=== PATIENT | female | born 1940 | race Caucasian/White ===

== ENCOUNTER 2017-02-26 09:57 | Emergency (ER) | payer MEDICARE, OTHER ==
[~2017-02-26] VITALS: Ht 163.8 cm; Wt 59.1 kg
[~2017-02-26 09:57] MED LIST: ASPI-628 PO; CHOL200012 PO; ESTR10TA VG; LORA10CA PO; RES15 PO
[2017-02-26 10:02] VITALS: BP 195/102; PULSE 86; RESP 14; O2SAT 99
--- NOTE | 2017-02-26 10:14 | ED.REPORT ---
HPI-General Illness Date of Service Feb 26, 2017 ED Provider: Onel Sánchez DO The patient is a 76 year old female with history of mitral valve prolapse, who presents to the emergency department after she had a sudden syncopal episode that occurred prior to arrival. The patient was out walking with a friend when she suddenly lost consciousness. She states she had no warning prior to the event. She remembers taking a step forward and was then flat on the road. Her walking partner told her that she said "on no" before she lost consciousness. She fell and hit her head on the road. She did not experience chest pain or shortness of breath prior to the event. At this time she complains of a headache and mild nausea. She denies severe neck pain, extremity pain, abdominal pain, back pain or vomiting. She ate a normal breakfast prior to the walk. She denies recent illnesses. Nursing Notes Stated Complaint: HEAD INJURY Chief Complaint: Head, Face, Neck Trauma Nursing Notes Reviewed: Yes Allergies: Coded Allergies: Barbiturates (Verified Allergy, Unknown, PSYCH FEELING, 09/09/09) Sulfa (Sulfonamide Antibiotics) (Verified Allergy, Unknown, 02/26/17) codeine (Verified Allergy, Unknown, 09/09/09) Scheduled Aspirin (Aspir 81) 81 Mg Tablet.dr 81 MG PO DAILY Loratadine (Claritin) 10 Mg Capsule 10 MG PO DAILY Scheduled PRN Temazepam (Temazepam) 15 Mg Capsule 15 MG PO HS PRN PRN For Insomnia Miscellaneous Medications Cholecalciferol (Vitamin D3) (D3-2000) 2,000 Unit Capsule 2,000 UNIT PO Estradiol (Vagifem) 10 Mcg Tablet 10 MCG VG General Time Seen by MD: 10:14 Chief Complaint Other (syncopal episode) Hx Obtained From: Patient Arrived By: Walk-in Sudden in Onset?: Yes Onset Occurred: 16 - 30 minutes ago Symptom Duration: 1 - 15 minutes Location: : Head Quality: Painful Severity: Current: Mild Severity: Maximum: Mild Recent Healthcare: No recent doctor visit, No recent hospitalization Similar Sx Previous: No Past Medical History Past Medical History Hs of nose bleeds Arthritis Mitral valve prolapse Past Surgical History Denies Family History Nonconributory Smoking History Former Smoker Social History Drug Use: Denies drug use Other Social History: Good social support, Local resident Ambulatory Status Independent Review of Systems Full Review of Systems Constitutional: Denies: Chills, Fever Ears / Nose / Throat: Denies: Nasal congestion, Sore throat Respiratory: Denies: Non-productive cough, Prod cough, bloody, Prod cough, brown, Prod cough, clear, Prod cough, green, Prod cough, white, Prod cough, yellow, Shortness of breath Cardiovascular: Denies: Chest pain GI: Reports: Nausea, Denies: Abdominal pain, Diarrhea, Vomiting Musculoskeletal: Denies: Back pain, Extremity pain, Neck pain Neurologic: Reports: Change LOC, Headache, Syncope Complete sys rev & neg: except as marked. Physical Exam Vital Signs Vital Signs Date Time Temp Pulse Resp B/P Pulse Ox O2 Delivery O2 Flow Rate FiO2 02/26/17 12:53 36.4 80 12 148/74 99 Room Air 02/26/17 11:44 36.3 85 14 156/67 99 Room Air 02/26/17 10:02 36.4 86 14 195/102 99 Initial VS: Reviewed ENT: Mucous membranes moist, Conjunctiva normal, No scleral icterus Respiratory: Breath sounds normal, Clear to auscultation, No respiratory distress Cardiovascular: Regular rate & rhythm, Heart sounds normal, Intact distal pulses Abdomen / GI: Soft, Non-tender, No guarding, No rebound, No distention Lymphatic: No lymphadenopathy Extremities: Vascular intact, Neuro intact, No swelling, No tenderness Skin: Warm, Dry, No cyanosis Neurologic: Alert, Oriented, Nonfocal Psychiatric: Mood/affect normal, Behavior normal, Normal thought content General/Constitutional: Awake, Alert, Cooperative Head / Eyes: Normocephalic, PERRL, EOMI Left occipital hematoma with a 1 cm laceration. Neck: Atraumatic, Supple, Full range of motion, No swelling, No midline vertebral tend Interpretation & Diagnostics Lab Results Interpretation Result Diagram: 02/26/17 1052 02/26/17 1052 Test 02/26/17 10:52 White Blood Count 4.4th/mm3 (3.8-10.1) Red Blood Count 4.82mil/mm3 (3.90-5.20) Hemoglobin 15.3g/dL (12.0-15.6) Hematocrit 46.0% (35.0-46.0) Mean Corpuscular Volume 95.4fL (81-100) Mean Corpuscular Hemoglobin 31.7pg (27.0-35.0) Mean Corpuscular Hemoglobin Concent 33.3% (32.0-37.0) Red Cell Distribution Width 13.8% (12.3-15.4) Platelet Count 207bil/L (150-400) Neutrophils (%) (Auto) 69.6% (40-74) Lymphocytes (%) (Auto) 17.4% (14-46) Monocytes (%) (Auto) 10.7% (4-12) Eosinophils (%) (Auto) 1.6% (0-5) Basophils (%) (Auto) 0.5% (0-3) Hold Urine Received (Received) Sodium Level 138mEq/L (134-144) Potassium Level 4.2mEq/L (3.5-5.2) Chloride Level 99mEq/L (97-108) Carbon Dioxide Level 23mmol/L (18-29) Blood Urea Nitrogen 16mg/dL (8-27) Creatinine 0.61mg/dL (0.57-1.00) Estimat Glomerular Filtration Rate 137mL/min (>59) Glucose Level 117mg/dL (60-99) Calcium Level 10.1mg/dL (8.5-10.1) Magnesium Level 2.2mg/dL (1.6-2.6) Total Bilirubin 0.6mg/dL (0.0-1.2) Aspartate Amino Transf (AST/SGOT) 28U/L (0-50) Alanine Aminotransferase (ALT/SGPT) 22U/L (0-32) Alkaline Phosphatase 61U/L (25-165) Troponin T 0.010ug/L (0.0-0.011) Total Protein 8.2g/dL (6.4-8.4) Albumin 4.8g/dL (3.4-5.0) ECG Interpretation ECG Interpretation: Sinus rhythm with a rate of 83 RBBB Time: 10:25 Interpreted by: ED physician X-Ray Chest Interpretation Chest Xray Interpretation: No acute disease seen. View: Portable, 1 view Interpretation / Wet Read by: Interpret - Radiologist CT Head Interpretation IMPRESSION: 1. No acute intracranial findings. 2. Large left parietal subgaleal hematoma. No underlying calvarial abnormality. Dictated by: Neena Garcia M.D. on 02/26/2017 at 10:40 Study: Head CT no contrast Interpretation / Wet Read by: Interpret - Radiologist Procedures Laceration Management Time: 12:10 Procedure Performed by: ED physician Consent / Setup / Site Prep: Consent from patient, Time-out performed, Hand hygiene observed, Stand sterile technique Location of Wound: occipital region Wound Length: 1 cm Local Anesthesia: Other (LET) Digital Block: No Wound Preparation: Normal saline Debridement: None Irrigation: Copious Foreign Body Explore / Removal: Explored for foreign body Undermining / Margins: Flaps aligned Repair Skin: [place] # Sutures - Skin: 4 Closure Layers: 1 Post-Procedure / Complications: No complications, Condition improved, Tolerated procedure well, Patient stable Re-Eval/Medical Decision Med Decision/Clinical Course [place] syncope rule: negative Back to normal baseline. Discussed the possibility of hospitalization and admission for telemetry monitoring patient declines and wants to go home and follow-up with her primary care doctor and high school counselor. Return and follow-up precautions given. Source of Hx: Old records, Family Time of Eval: 11:00 Re-Evaluation/Progress Note: Discussed head CT results. Time of Eval: 11:39 Re-Evaluation/Progress Note: Rechecked the wound after the electronic test technician cleaned the wound with normal saline. Discussed plan for laceration management. Time of Eval: 12:16 Re-Evaluation/Progress Note: Discussed plan for discharge. All questions were addressed. Counseled Regarding: Diagnosis, Lab results, Need for follow-up, When/why to return to ED Discharge & Departure Primary Impression: Syncope Syncope type: unspecified Qualified Code: R55 - Syncope and collapse Additional Impressions: Fall from ground level Hematoma of occipital surface of head Encounter type: initial encounter Qualified Code: S00.83XA - Contusion of other part of head, initial encounter Scalp laceration Encounter type: initial encounter Qualified Code: S01.01XA - Laceration without foreign body of scalp, initial encounter Disposition: Home Discharge Condition All VS Reviewed: Yes Condition: Stable Patient Instructions: Laceration (ED), Minor Head Injury (ED) Additional Instructions: Thank you for entrusting us with your care today. Your workup today is reassuring. There is no evidence of an intracranial bleed or any skull fractures. There was a small laceration to the occipital region of your scalp. We placed 4 zena. These need to be removed in 7 days. You can have the zena removed by your regular doctor, in urgent care, or in the emergency department. Please return to the emergency department immediately if you develop increased head pain, vomiting, dizziness, lightheadedness, weakness, numbness, or any other new or concerning symptoms. Referrals: Isiah Molina MD (PCP) Scribe Attestation Portions of this note were transcribed by La Malin. I, Dr. Sánchez personally performed the history, physical exam and medical decision-making; I reviewed and confirmed the accuracy of the information in the transcribed note. Signed by: Cherry Marvin, 02/26/2017 at 1230. copies to: Isiah Molina MD, Timothy S DO Feb 26, 2017 10:14 La Malin Feb 26, 2017 10:21
[2017-02-26] MEDS ORDERED: Ondansetron 2 mg/mL 2 mL Inj IVPUSH ONE (10:15)
[2017-02-26] MEDS ORDERED: 0.9% Sodium Chloride 1,000 ML IV ONE (10:15)
--- NOTE | 2017-02-26 10:43 | DRSVH ---
PROCEDURE: CT BRAIN WITHOUT CONTRAST ([id number]) INDICATIONS: syncope, head injury TECHNIQUE: Noncontrast 4.5 mm thick angled axial sections acquired from the foramen magnum to the vertex, with c oronal reformats. COMPARISON: None. FINDINGS: Image quality: Excellent. CSF spaces: Basal cisterns are patent. No extra-axial fluid collections. The ventricles are symmet edith in size and shape. Brain: No intracranial bleeds or masses. There is cerebral volume loss for age, with resultant vent ricular and sulcal prominence. There are periventricular and deep white matter chronic small vessel ischemic changes. There is intracranial internal carotid artery atherosclerosis. Skull and face: There is a large left parietal subgaleal hematoma. Calvarium and visualized facial b ones appear intact, without suspicious lesions. Sinuses: Visualized sinuses and mastoids are clear. IMPRESSION: 1. No acute intracranial findings. 2. Large left parietal subgaleal hematoma. No underlying calvarial abnormality. Dictated by: Neena Garcia M.D. on 02/26/2017 at 10:40 Approved by: Neena Garcia M.D. on 02/26/2017 at 10:42
[2017-02-26] MEDS ORDERED: fentaNYL-PF 50 mCg/mL 2 mL Inj IVPUSH ONE (10:50)
[2017-02-26 11:23] LABS: BASOPHILS % (AUTO) 0.5 % (0-3); EOSINOPHILS % (AUTO) 1.6 % (0-5); MONOCYTES % (AUTO) 10.7 % (4-12); Mean Corpuscular Hemoglobin 31.7 pg (27.0-35.0); Mean Corpuscular Volume 95.4 fL (81-100); NEUTROPHILS % (AUTO) 69.6 % (40-74); Platelet Count 207 bil/L (150-400)
[2017-02-26 11:41] LABS: TROPONIN T 0.01 ug/L (0.0-0.011)
[2017-02-26 11:44] VITALS: BP 156/67; PULSE 85; RESP 14; O2SAT 99
[2017-02-26] MEDS ORDERED: Lidocaine-Epi-Tetracaine Solution 3 mL Syringe TOPICAL ONE (11:45)
[2017-02-26 11:52] LABS: Magnesium 2.2 mg/dL (1.6-2.6)
--- NOTE | 2017-02-26 12:30 | DRSVH ---
PROCEDURE: X-RAY CHEST ONE VIEW, PORTABLE ([id number]) INDICATIONS: syncope TECHNIQUE: One view of the chest was acquired. COMPARISON: None. FINDINGS: Surgical changes and devices: None. Lungs and pleura: No pleural effusions or pneumothorax. Lungs are clear. Mediastinum: Mediastinal contours appear normal. Heart size is normal. Bones and chest wall: No suspicious bony lesions. Overlying soft tissues appear unremarkable. IMPRESSION: No acute cardiopulmonary findings. Dictated by: Neena Garcia M.D. on 02/26/2017 at 12:28 Approved by: Neena Garcia M.D. on 02/26/2017 at 12:29
[2017-02-26 12:53] VITALS: BP 148/74; PULSE 80; RESP 12; O2SAT 99
== END 2017-02-26 13:09 | disposition home or self-care (01) ==
LOC: SED 09:57
DX: R55 Syncope and collapse (principal); S00.03XA Contusion of scalp, initial encounter; S01.01XA Laceration without foreign body of scalp, initial encounter; W19.XXXA Unspecified fall, initial encounter; Y93.01 Activity, walking, marching and hiking; Y92.488 Other paved roadways as the place of occurrence of the external cause; Y99.8 Other external cause status; Z79.82 Long term (current) use of aspirin; Z87.891 Personal history of nicotine dependence; Z88.2 Allergy status to sulfonamides
CPT/HCPCS: 12001; 36415; 70450; 71010; 80053; 83735; 84484; 85025; 93005; 96374; 96375; 99285; J2405; J3010; J7030

== ENCOUNTER 2017-03-05 07:32 | Emergency (ER) | payer MEDICARE, OTHER ==
[~2017-03-05] VITALS: Ht 162.6 cm; Wt 60.5 kg
[2017-03-05 07:40] VITALS: BP 118/70; PULSE 78; RESP 12; O2SAT 98
== END 2017-03-05 07:55 | disposition home or self-care (01) ==
LOC: SED 07:32
DX: Z48.02 Encounter for removal of sutures (principal); Z88.5 Allergy status to narcotic agent; Z88.2 Allergy status to sulfonamides